=== PATIENT | female | born 1990 | race Caucasian/White ===

== ENCOUNTER 2022-04-29 12:36 | Outpatient (CLI) | payer OTHER, SELFPAY ==
[2022-04-29 22:52] LABS: Vitamin B12* 836 pg/mL (243-894)
== END 2022-04-29 12:37 | disposition home or self-care (01) ==
LOC: KYNREF 13:53
PROVIDERS: PCP Nurse Practitioner Family; Visit Provider Nurse Practitioner Family
DX: E53.8 Deficiency of other specified B group vitamins (principal)
CPT/HCPCS: 82607

== ENCOUNTER 2024-08-24 09:30 | Outpatient (CLI) | payer BC, SELFPAY | END 2024-08-24 09:31 | disposition home or self-care (01) | PROVIDERS: PCP Nurse Practitioner Family; Visit Provider Nurse Practitioner Family | DX: E53.8 Deficiency of other specified B group vitamins (principal); Z13.228 Encounter for screening for other metabolic disorders; Z13.220 Encounter for screening for lipoid disorders; Z13.0 Encounter for screening for diseases of the blood and blood-forming organs and certain disorders involving the immune mechanism | CPT/HCPCS: 80053; 80061; 82607; 85025 ==

== ENCOUNTER 2024-12-28 09:43 | Outpatient (CLI) | payer BC, SELFPAY | END 2024-12-28 09:44 | disposition home or self-care (01) | LOC: KYNREF 09:43 | PROVIDERS: PCP Nurse Practitioner Family; Visit Provider Nurse Practitioner Family | DX: R55 Syncope and collapse (principal) | CPT/HCPCS: 80050; 80053; 84443; 84484; 85025; 85379 ==